=== PATIENT | male | born 1950 | race Caucasian/White ===

== ENCOUNTER 2017-12-26 09:42 | Outpatient (CLI) | payer OTHER | END 2017-12-26 09:43 | disposition home or self-care (01) | LOC: BICRAD 09:42 | PROVIDERS: ATTEND Family Medicine | DX: S42.001A Fracture of unspecified part of right clavicle, initial encounter for closed fracture (principal) ==

== ENCOUNTER 2019-01-24 10:17 | Outpatient (CLI) | payer OTHER ==
--- NOTE | 2019-01-24 11:45 | RAD ---
CERVICAL SPINE THREE VIEWS: HISTORY: Cervical radiculopathy. Follow up prior surgery. FINDINGS: Anterior cervical fusion changes at C5, C6, and C7, with intradiskal prosthesis. No significant leilani lignment. Generalized spondylosis. IMPRESSION: Anterior cervical fusion changes at C5 through C7. POS: [facility]
== END 2019-01-24 10:18 | disposition home or self-care (01) ==
LOC: TBSIIMAG 10:17
PROVIDERS: ATTEND Neurological Surgery
DX: M54.12 Radiculopathy, cervical region (principal); Z98.1 Arthrodesis status
CPT/HCPCS: 72040

== ENCOUNTER 2019-03-07 13:19 | Outpatient (CLI) | payer OTHER ==
--- NOTE | 2019-03-07 13:56 | RAD ---
XR Cerv Sp Ap Lat STANDARD: 03/07/2019 12:00 AM CLINICAL HISTORY: Postop cervical spine with cervical radiculopathy ACDF at C4-5 through C7 is unchanged from the comparison examination dated January 24, 2019 paraspinal line is within normal limits. Mild disc degenerative disease at C4-5 is stable. Mild multilevel facet osteoarthritic changes stable. Prevertebral soft tissues are normal appearing. Lateral masses are symmetric. IMPRESSION: Stable postoperative cervical spine. Stable multilevel cervical spondylosis.
== END 2019-03-07 13:20 | disposition home or self-care (01) ==
LOC: TBSIIMAG 13:19
PROVIDERS: ATTEND Neurological Surgery
DX: M48.02 Spinal stenosis, cervical region (principal); M47.22 Other spondylosis with radiculopathy, cervical region; Z98.890 Other specified postprocedural states
CPT/HCPCS: 72040

== ENCOUNTER 2019-08-27 13:24 | Outpatient (CLI) | payer MEDICARE ==
--- NOTE | 2019-08-27 16:16 | MRI ---
MRI OF THE PROSTATE WITHOUT AND WITH CONTRAST: 08/27/19 HISTORY: Elevated PSA. No history of prostate biopsy. TECHNIQUE: Multiplanar, multisequence MRI images were obtained in the prostate without and with IV contrast. FINDINGS: There is mild to moderate hypertrophy of the central gland consistent with BPH. No suspicious low T2 signal lesion is seen within the prostate. No restricted diffusion is seen in the peripheral zone of the prostate. No low signal is seen in the ADC map in the peripheral zone of the prostate. The neurovascular bundles are intact. The seminal vesicles are intact. No pelvic adenopathy is seen. No marrow signal abnormality is present. IMPRESSION: PI-RADS category 2 - low likelihood that a clinically significant cancer is present. POS: [facility]
== END 2019-08-27 13:25 | disposition home or self-care (01) ==
LOC: TBSIIMAG 13:24
PROVIDERS: ATTEND Family Medicine
DX: R97.20 Elevated prostate specific antigen [PSA] (principal)
CPT/HCPCS: 72195; 72197; 82565